=== PATIENT | female | born 2000 | race Caucasian/White ===

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

== ENCOUNTER → 2020-10-13 08:13 | Outpatient (BNVA) | payer MEDICAID, SELFPAY | PROVIDERS: Family Provider Physician Assistant Medical; PCP Physician Assistant Medical; Visit Provider Specialist | DX: F32.9 Major depressive disorder, single episode, unspecified (principal); F84.0 Autistic disorder | CPT/HCPCS: 99213 ==

== ENCOUNTER 2020-10-29 09:20 | Outpatient (CLI) | payer MEDICAID, SELFPAY ==
--- NOTE | 2020-10-29 09:30 | US_ITS ---
WS: [id number] ULTRASOUND RENAL TECHNIQUE: Ultrasound examination of both kidneys. CLINICAL INFORMATION: R32 - Unspecified urinary incontinence COMPARISON: None. FINDINGS: Technically difficult study RIGHT: Right kidney is normal in size and appearance. Echogenicity: Normal. Cortical thickness: 1.3 cm; Normal. Hydronephrosis: None. Perinephric fluid: None. Right kidney measures: 11.0 cm x 3.6 cm x 4.6 cm. LEFT: Left kidney is normal in size and appearance. Echogenicity: Normal. Cortical thickness: 1.2 cm; Normal. Hydronephrosis: None. Perinephric fluid: None. Left kidney measures: 10.5 cm x 3.8 cm x 4.9 cm. Normal visualized aorta. Normal bladder US/US renal BI* [id number] IMPRESSION: Normal renal ultrasound.
== END 2020-10-29 09:21 | disposition home or self-care (01) ==
PROVIDERS: PCP Physician Assistant Medical; Visit Provider Urology
DX: R32 Unspecified urinary incontinence (principal)
CPT/HCPCS: 76770

== ENCOUNTER → 2021-10-12 07:53 | Outpatient (BNVA) | payer MEDICAID, SELFPAY | PROVIDERS: PCP Physician Assistant Medical; Visit Provider Specialist | DX: F32.9 Major depressive disorder, single episode, unspecified (principal); F84.0 Autistic disorder | CPT/HCPCS: 99213; 99214 ==

== ENCOUNTER → 2021-10-29 08:06 | Outpatient (BNVA) | payer MEDICAID, SELFPAY | PROVIDERS: PCP Nurse Practitioner Family; Visit Provider Podiatrist Foot & Ankle Surgery | DX: L60.0 Ingrowing nail (principal) | CPT/HCPCS: 11750 ==

== ENCOUNTER → 2021-11-16 10:10 | Outpatient (BNVA) | payer MEDICAID, SELFPAY | PROVIDERS: PCP Nurse Practitioner Family; Visit Provider Podiatrist Foot & Ankle Surgery | DX: Z98.890 Other specified postprocedural states (principal) | CPT/HCPCS: 99213 ==

== ENCOUNTER → 2022-03-03 08:23 | Outpatient (BNVA) | payer MEDICAID, SELFPAY | PROVIDERS: PCP Nurse Practitioner Family; Visit Provider Podiatrist Foot & Ankle Surgery | DX: L60.0 Ingrowing nail (principal) | CPT/HCPCS: 11750 ==

== ENCOUNTER → 2022-04-26 10:38 | Outpatient (BNVA) | payer MEDICAID, SELFPAY | PROVIDERS: PCP Nurse Practitioner Family; Visit Provider Podiatrist Foot & Ankle Surgery | DX: L60.0 Ingrowing nail (principal); Z98.890 Other specified postprocedural states; L92.9 Granulomatous disorder of the skin and subcutaneous tissue, unspecified | CPT/HCPCS: 99213 ==

== ENCOUNTER → 2022-05-27 09:08 | Outpatient (BNVA) | payer MEDICAID, SELFPAY | PROVIDERS: PCP Nurse Practitioner Family; Visit Provider Podiatrist Foot & Ankle Surgery | DX: L60.0 Ingrowing nail (principal); Z98.890 Other specified postprocedural states; L92.9 Granulomatous disorder of the skin and subcutaneous tissue, unspecified | CPT/HCPCS: 99213 ==

== ENCOUNTER → 2022-06-24 14:55 | Outpatient (BNVA) | payer MEDICAID, SELFPAY | PROVIDERS: PCP Nurse Practitioner Family; Visit Provider Podiatrist Foot & Ankle Surgery | DX: L60.0 Ingrowing nail (principal) | CPT/HCPCS: 11750; A6219; A6446 ==

== ENCOUNTER → 2022-12-13 14:06 | Outpatient (BNVA) | payer MEDICAID, SELFPAY | PROVIDERS: PCP Nurse Practitioner Family; Visit Provider Specialist | DX: G40.909 Epilepsy, unspecified, not intractable, without status epilepticus (principal); F84.0 Autistic disorder; F32.A Depression, unspecified | CPT/HCPCS: 99213 ==

== ENCOUNTER → 2023-10-28 12:44 | Outpatient (BNVA) | payer MEDICAID, SELFPAY | PROVIDERS: PCP Nurse Practitioner Family; Visit Provider Specialist | DX: F84.0 Autistic disorder (principal); F34.1 Dysthymic disorder | CPT/HCPCS: 99214 ==

== ENCOUNTER → 2024-01-10 13:26 | Outpatient (BNVA) | payer MEDICAID, SELFPAY | PROVIDERS: PCP Nurse Practitioner Family; Visit Provider Specialist | DX: F84.0 Autistic disorder (principal); F34.1 Dysthymic disorder | CPT/HCPCS: 99214 ==

== ENCOUNTER → 2024-04-06 12:48 | Outpatient (BNVA) | payer MEDICAID, SELFPAY | PROVIDERS: PCP Nurse Practitioner Family; Visit Provider Specialist | DX: F84.0 Autistic disorder (principal); F34.1 Dysthymic disorder; R00.0 Tachycardia, unspecified | CPT/HCPCS: 99214 ==

== ENCOUNTER → 2024-09-18 14:53 | Outpatient (BNVA) | payer MEDICAID, SELFPAY | PROVIDERS: PCP Nurse Practitioner Family; Referring Provider Nurse Practitioner Family; Visit Provider Specialist | DX: F84.0 Autistic disorder (principal); F34.1 Dysthymic disorder; R56.9 Unspecified convulsions; F69 Unspecified disorder of adult personality and behavior | CPT/HCPCS: 99214 ==

== ENCOUNTER 2024-10-01 18:58 | Emergency (ER) | payer MEDICAID, SELFPAY ==
[2024-10-01 19:02] VITALS: BP 112/72; PULSE 92; TEMP 36.9; O2SAT 100
--- NOTE | 2024-10-01 19:38 | CTR_ITS ---
PROCEDURE INFORMATION: Exam: CT Head Without Contrast Exam date and time: 10/01/2024 7:49 PM Age: 23 years old Clinical indication: Altered mental status/memory loss; Confusion or disorientation; Additional info: AMS TECHNIQUE: Imaging protocol: Computed tomography of the head without contrast. Axial, coronal and sagittal reformatted images were created and reviewed. Radiation optimization: All CT scans at this facility use at least one of these dose optimization techniques: automated exposure control; mA and/or kV adjustment per patient size (includes targeted exams where dose is matched to clinical indication); or iterative reconstruction. COMPARISON: No relevant prior studies available. RADIATION DOSE METRICS: Total DLP (mGy-cm): 2102.96 FINDINGS: Brain: No CT evidence of acute intracranial hemorrhage or acute territorial infarction. No significant mass effect or midline shift. Basal cisterns patent. Cerebral ventricles: Normal in size and configuration. Paranasal sinuses: Unremarkable. No fluid levels. Mastoid air cells: Grossly unremarkable. Bones: Unremarkable. No acute fracture. Soft tissues: Grossly unremarkable. CT/CT head wo con* [id number] IMPRESSION: No CT evidence of acute intracranial pathology.
[2024-10-01] MEDS: ziprasidone 20 mg/mL SDV 10 MG IM (20:08)
[2024-10-01] MEDS: water for injection-sterile 10 ML 2.1 ML (20:08)
[2024-10-01 20:13] LABS: Basophils % 0.6 %; Eosinophils # 0.1 10^3/uL (0.0-0.8); Eosinophils % 0.9 %; Hematocrit 37.7 % (36-47); Lymphocytes # 2.1 10^3/uL (0.8-4.8); Lymphocytes % 38.4 %; Mean Corpuscular HGB Conc 31.6 g/dL (30-55); Mean Corpuscular Hemoglobin 26.4 pg (27-33); Mean Corpuscular Volume 83.8 fl (85-98); Mean Platelet Volume 9.4 fL (7.4-10.4); Monocytes # 0.5 10^3/uL (0.2-0.9); Monocytes % 9.6 %; Neutrophils # 2.73 10^3/uL (1.8-7.7); Neutrophils % 50.3 %; Nucleated Red Blood Cells % 0 %; Platelet Count 239 10^3/cmm (157-399); White Blood Count 5.42 10^3/uL (3.29-11.43)
--- NOTE | 2024-10-01 20:28 | ED.C_ITS ---
HPI - Psych 2 General: Chief Complaint: Psychiatric Symptoms Stated Complaint: MHE-Aggressive Time Seen by Provider: 10/01/24 19:15 Source: family History of Present Illness: 23-year-old female with cognitive impair ment presents with her grandmother (legal guardian) due to increased aggression and behavioral changes over the past two weeks. Patient has exhibited new-onset aggressive behaviors including biting, kicking, shoving, slapping family members, throwing objects, pulling hair, and pulling pictures off sweet. Recent medication changes by Dr. Schmidt approximately 1.5-2 weeks ago reportedly worsened symptoms. Guardian attempted to restart previous medication regimen without improvement. Patient has no history of similar aggressive episodes, with guardian noting this behavior is highly atypical. Notable recent psychosocial stressor includes of grandfather in November 2021, which initially caused depression that had been improving. Patient lives with grandmother (guardian), sister, and recently returned mother. Recent gynecologic history includes discontinuation of Depo shot 6 months ago, history of menorrhagia requiring transfusion (6 units), subsequent D&C, and current IUD placement. Related Data Home Medications ?Medication ?Instructions ?Recorded ?Confirmed ferrous sulfate 325 mg (65 mg mg PO 09/18/24 09/18/24 iron) tablet (FeroSul) Previous Rx's ?Medication ?Instructions ?Recorded trazodone 100 mg tablet See Rx Instructions .Route 0 01/10/24 .COMPLEX #90 tabs aripiprazole 5 mg tablet (Abilify) 5 mg PO DAILY #30 t abs 09/18/24 citalopram 40 mg tablet 40 mg PO DAILY #30 tabs 08/29 07/24 topiramate 100 mg tablet (Topamax) 100 mg PO DAILY #30 tabs 09/18/24 Allergies Allergy/AdvReac Type Severity Reaction Status Date / Time lamotrigine (From Lamictal) Allergy Intermediate Rash Verified 10/01/24 19:09 PFSH ED 2 PFSH: Medical History Enuresis Surgical History History of tonsillectomy Hx of eye surgery Family History Grandfather Hypertension Denies family history of Colon cancer Ovarian cancer Thyroid cancer Diabetes Heart disease Breast cancer Uterine cancer Stroke Social History Smoking and tobacco/nicotine status: never used tobacco/nicotine Current occupational status: disabled Physical Exam 2 Const: COMMON NORMALS: no acute distress, alert and well nourished O RIENTATION/CONSCIOUSNESS: Yes awake OTHER: Developmentally delayed 23-year-old female who is awake alert sitting in a chair HENMT: COMMON NORMALS: normocephalic and atraumatic HEAD & SCALP: n ormocephalic and atraumatic Eye: COMMON NORMALS: conjunctivae normal CONJUNCTIVA: Yes conjunctivae normal Neck/C-Spine: GENERAL: Yes normal visual inspection Resp: COMMON NORMALS: normal respiratory effort, No retractions and No use of accessory muscles Cardio: COMMON NORMALS: regular rhythm and Peripheral pulses 2+ throughout RHYTHM: regular rhythm PERIPHERAL PULSES: Peripheral pulses 2+ throughout GI: COMMON NORMALS: Soft to palpation and non-tender PALPATION: Yes Soft to palpation Extremity: COMMON NORMALS: full ROM and no pedal edema Neuro: COMMON NORMALS: no focal motor deficits SENSORIUM/ORIENTATION: Yes alert Course 2 Vital Signs: Vital signs: Vital Signs Temperature 98.4 F 10/01/24 19:02 Pulse Rate 92 10/01/24 19:02 Blood Pressure 112/72 10/01/24 19:02 Pulse Oximetry 100 10/01/24 19:02 Oxygen Delivery Me thod Room Air 10/01/24 19:02 MDM - Psych Medical Decision Making Review of Systems: Limited due to patient's nonverbal status and developmental delay Constitutional: Unable to assess due to communication barriers Psychiatric: Noted behavioral changes and restlessness Past Medical History: Developmental delay Nonverbal status Social History: Lives with grandmother who is legal guardian Developmental delay affecting communication Nonverbal Physical Exam: General: Patient is nonverbal, demonstrating restless behavior with attempts to get up from chair Psychiatric: Alert but nonverbal, displaying restless behavior Neurological: Limited exam due to communication barriers Lab Results: Pending studies ordered: - Complete Blood Count (CBC) - Comprehensive Metabolic Panel (CMP) - Urinalysis - test - Urine drug screen - Salicylate level - Acetaminophen level Imaging and Other Relevant Results: EKG ordered Medical Decision Making: Summary Statement: Developmentally delayed, nonverbal patient presenting with behavioral changes, accompanied by grandmother/guardian. Problem List: 1. Acute behavioral changes 2. Developmental delay 3. Nonverbal status Differential Diagnosis: 1. Medication effect/toxicity 2. Metabolic derangement 3. Infection 4. Substance use 5. Psychiatric exacerbation ED Course: Patient evaluated with comprehensive laboratory workup ordered including toxicology screening, basic metabolic evaluation, and EKG to rule out organic causes of behavioral changes. Assessment and Plan: 1. Acute behavioral changes: - Comprehensive metabolic workup ordered - Toxicology screening including salicylate and acetaminophen levels - EKG to evaluate for any cardiac abnormalities - Await results to guide further management 2. Developmental delay/Nonverbal status: - History obtained from grandmother/guardian - Will require careful observation and monitoring during ED stay - Consider psychiatric consultation based on lab results Patient's laboratory workup is unremarkable for acute abnormalities here. CT scan of the brain is negative for acute processes. Patient was given a dose of Geodon here to help with calming. She has not been aggressive or agitated significantly while here. Due to her significant cognitive delay we discussed potential difficulty with inpatient psychiatric placement and ultimately feel her need would likely be better suited for long-term inpatient facility or longterm placement. The guardian states she was aware of this and they have considered doing this and talked about it on several occasions in the past including with her psychiatrist. I offered for patient to stay here and we locate her attempt to locate long-term placement however feel this may cause some increased agitation with the patient given the likely long delay while here. The grandmother is in agreement and feels comfortable taking her home and states they can follow-up with her mental health care provider and discuss seeking long-term inpatient placement from home. Return precautions were provided. Lab Data I reviewed the patient's lab results. 10/01/24 20:05 10/01/24 20:[address] 10/01/24 19:38 IMPRESSION: No CT evidence of acute intracranial pathology. Laboratory Results WBC 5.42 10^3/uL (3.29-11.43) 10/01/24 20:05 RBC 4.50 10^6/uL (3.85-5.65) 10/01/24 20:05 Hgb 11.90 g/dL (11.27-16.99) 10/01/24 20:05 Hct 37.7 % (36-47) 10/01/24 20:05 MCV 83.8 fl (85-98) L 10/01/24 20:05 MCH 26.4 pg (27-33) L 10/01/24 20:05 MCHC 31.6 g/dL (30-55) 10/01/24 20:05 RDW 13.0 % (12.1-15.1) 10/01/24 20:05 Plt Count 239 10^3/cmm (157-399) 10/01/24 20:05 MPV 9.4 fL (7.4-10.4) 10/01/24 20:05 Neut % (Auto) 50.3 % 10/01/24 20:05 Lymph % (Auto) 38.4 % 10/01/24 20:05 [place] % (Auto) 9.6 % 10/01/24 20:05 Eos % (Auto) 0.9 % 10/01/24 20:05 Baso % (Auto) 0.6 % 10/01/24 20:05 Neut # (Auto) 2.73 10^3/uL (1.8-7.7) 10/01/24 20:05 Lymph # (Auto) 2.1 10^3/uL (0.8-4.8) 10/01/24 20:05 [place] # (Auto) 0.5 10^3/uL (0.2-0.9) 10/01/24 20:05 Eos # (Auto) 0.1 10^3/uL (0.0-0.8) 10/01/24 20:05 Baso # (Auto) 0.0 10^3/uL (0.0-0.1) 10/01/24 20:05 Nucleated RBC % (auto) 0 % 10/01/24 20:05 Nucleated RBCs # 0.0 /100WBC 10/01/24 20:05 Sodium 140 mmol/L (136-145) 10/01/24 20:05 Potassium 3.5 mmol/L (3.5-5.1) 10/01/24 20:05 Chloride 108 mmol/L (98-107) H 10/01/24 20:05 Carbon Dioxide 19 mmol/L (22-29) L 10/01/24 20:05 Anion Gap 16.5 (5-19) 10/01/24 20:05 BUN 10 mg/dL (6-20) 10/01/24 20:05 Creatinine 0.7 mg/dL (0.5-0.9) 10/01/24 20:05 GFR Calculation 103.7 mL/min (90-130) 10/01/24 20:05 Glucose 82 mg/dL (65-115) 10/01/24 20:05 Calculated Osmolality 288 mOsm/kg (285-295) 10/01/24 20:05 Calcium 8.6 mg/dL (8.5-10.5) 10/01/24 20:05 Total Bilirubin 0.4 mg/dL (0.15-1.2) 10/01/24 20:05 AST 15 U/L (0-32) 10/01/24 20:05 ALT 15 U/L (0-33) 10/01/24 20:05 Alkaline Phosphatase 48 U/L (35-105) 10/01/24 20:05 Total Protein 7.2 g/dL (6.6-8.7) 10/01/24 20:05 Albumin 4.1 g/dL (3.5-5.2) 10/01/24 20:05 Globulin 3.1 g/dL (1.3-4.6) 10/01/24 20:05 TSH 3.15 uIU/mL (0.27-4.20) 10/01/24 20:05 HCG, Qual Negative (Negative) 10/01/24 20:05 Salicylates < 0.3 mg/dL (3-10) L 10/01/24 20:05 Acetaminophen < 5.0 ug/mL (10-30) L 10/01/24 20:05 Ethyl Alcohol < 10 mg/dL (0-10) 10/01/24 20:05 All radiology interpretation(s) finalized by discharge Discharge Plan Discharge Patient Disposition: Home Clinical Impression: Developmental delay, profound, Outbursts of explosive behavior Condition: Stable Prescriptions: No Action trazodone 100 mg tablet See Rx Instructions .ROUTE .COMPLEX Qty: 90 3RF Dose Instruction: TAKE 1 TABLET(100 MG) BY MOUTH DAILY AT BEDTIME Rx Instructions: TAKE 1 TABLET(100 MG) BY MOUTH DAILY AT BEDTIME as needed for sleep ferrous sulfate [FeroSul] 325 mg (65 mg iron) tablet PO citalopram 40 mg tablet 40 mg PO DAILY Qty: 30 11RF Rx Instructions: take at night aripiprazole [Abilify] 5 mg tablet 5 mg PO DAILY Qty: 30 5RF Rx Instructions: at night topiramate [Topamax] 100 mg tablet 100 mg PO DAILY Qty: 30 11RF Rx Instructions: take at night Discharge Orders: Discharge ED (Routine); Ordered 10/01/24 Ordered By: Curt Bean Referrals: Jennifer Schmidt MD [Primary Care Provider, Neurology] Patient Instructions: Opioid Safety Activity Restrictions/Additional Instructions: Follow-up with your mental health care provider as an outpatient. Contact them tomorrow to discuss further outpatient treatment and potential long-term inpatient psychiatric placement or longterm placement. Return for any concerns or self-harm or increased aggressive behavior. Print Language: Croatian Coding Level of Care Code ED Cyanide Furnace Operator for William Menendez
[2024-10-01 20:39] LABS: Alanine Aminotransferase 15 U/L (0-33); Albumin Level 4.1 g/dL (3.5-5.2); Alkaline Phosphatase 48 U/L (35-105); Anion Gap 16.5 (5-19); Aspartate Amino Transferase 15 U/L (0-32); Blood Urea Nitrogen 10 mg/dL (6-20); Calcium 8.6 mg/dL (8.5-10.5); Carbon Dioxide 19 mmol/L (22-29); Chloride 108 mmol/L (98-107); Creatinine Clr Calc Pharmacy 115.4587; Globulin 3.1 g/dL (1.3-4.6); Glomerular Filtration Rate 103.7 mL/min (90-130); Glucose 82 mg/dL (65-115); Osmolality Calculated 288 mOsm/kg (285-295); Potassium 3.5 mmol/L (3.5-5.1); Sodium 140 mmol/L (136-145); Thyroid Stimulating Hormone 3.15 uIU/mL (0.27-4.20); Total Bilirubin 0.4 mg/dL (0.15-1.2); Total Protein 7.2 g/dL (6.6-8.7)
[2024-10-01 20:41] LABS: Acetaminophen < 5.0 ug/mL (10-30); Alcohol Level < 10 mg/dL (0-10); Salicylate < 0.3 mg/dL (3-10)
[2024-10-01 23:35] LABS: HCG, Serum Qual Negative (Negative)
[2024-10-01 23:52] VITALS: BP 146/79; PULSE 89; RESP 16; O2SAT 97
--- NOTE | 2024-10-02 17:15 | W.C[facility].NURCN ---
[facility] Nurse Contact Note Nurse Contact Note V/S were not obtained in [facility] as client due to possible behaviors/mental illness/disability.
== END 2024-10-01 23:54 | disposition home or self-care (01) ==
PROVIDERS: Emergency Provider Student in an Organized Health Care Education/Training Program; PCP Specialist
DX: F73 Profound intellectual disabilities (principal); F63.81 Intermittent explosive disorder
CPT/HCPCS: 36415; 70450; 80053; 80307; 84443; 84703; 85025; 96372; 99284; J3486

== ENCOUNTER → 2024-10-02 14:06 | Outpatient (BNVA) | payer MEDICAID, SELFPAY | PROVIDERS: PCP Specialist; Referring Provider Specialist; Visit Provider Specialist | DX: G40.909 Epilepsy, unspecified, not intractable, without status epilepticus (principal); F31.12 Bipolar disorder, current episode manic without psychotic features, moderate; F84.0 Autistic disorder; F34.1 Dysthymic disorder; F69 Unspecified disorder of adult personality and behavior | CPT/HCPCS: 99214 ==

== ENCOUNTER 2024-10-02 17:51 | Emergency (ER) | payer MEDICAID, SELFPAY ==
[2024-10-02 18:10] VITALS: BP 119/72; PULSE 101; RESP 18; TEMP 37.7; O2SAT 98; BMI 27.9
[2024-10-02 19:52] VITALS: BP 139/99; PULSE 100; RESP 16; O2SAT 95
--- NOTE | 2024-10-02 20:14 | ED.C_ITS ---
HPI - Psych General: Chief Complaint: Psychiatric Symptoms Stated Complaint: MHE Agressive Time Seen by Provider: 10/02/24 18:03 History of Present Illness: 23-year-old female with past medical his tory of a seizure disorder, autism, developmental delay has been having behavioral issues and intermittent behavioral outbursts of aggression over the past several months particular worse over the past few weeks. She is been managed by her neurologist Dr. Schmidt. She was seen here last night for this and had a thorough evaluation including head CT labs that were unrevealing. She was given a dose of Ativan and was discharged. Patient continues to have intermittent aggressive episodes. She was seen at her neurologist office today who referred her back to the emergency department. Here the patient is calm follows commands she is here with her grandmother. The grandmother and the mother have been caring for the patient. Related Data Home Medications ?Medication ?Instructions ?Recorded ?Confirmed ferrous sulfate 325 mg (65 mg mg PO 09/18/24 10/02/24 iron) tablet (FeroSul) Previous Rx's ?Medication ?Instructions ?Recorded trazodone 100 mg tablet See Rx Instructions .Route 0 01/10/24 .COMPLEX #90 tabs citalopram 40 mg tablet 40 mg PO DAILY #30 tabs 08/29 07/24 topiramate 100 mg tablet (Topamax) 100 mg PO DAILY #30 tabs 09/18/24 aripiprazole 10 mg tablet 10 mg PO DAILY #30 tabs 11/21 divalproex 125 mg capsule,delayed 500 mg (4 x 125 mg) PO BID 30 days 10/02/24 release sprinkle (Depakote #240 caps Sprinkles) Allergies Allergy/AdvReac Type Severity Reaction Status Date / Time lamotrigine (From Lamictal) Allergy Intermediate Rash Verified 10/02/24 16:14 Review of Systems Const: Denies: fever(s) or chills ENMT: Denies: oral sores or dental pain Card: Denies: edema, swelling of feet/ankles or syncope Resp: Denies: dyspnea, productive cough or non-productive cough GI: Denies: abdominal pain, vomiting or diarrhea Skin/Breast: Denies: rash Neuro: Denies: weakness in extremities Psych: Reports: irritability PFSH ED PFSH: Medical History Enuresis Surgical History History of tonsillectomy Hx of eye surgery Family History Grandfather Hypertension Denies family history of Colon cancer Ovarian cancer Thyroid cancer Diabetes Heart disease Breast cancer Uterine cancer Stroke Social History Smoking and tobacco/nicotine status: never used tobacco/nicotine Current occupational status: disabled Physical Exam Narrative: EXAM NARRATIVE: General: Alert, no acute distress. Skin: Warm, dry. Head: Normocephalic, atraumatic. Neck: Supple, trachea midline. Eye: Extraocular movements are intact. Ears, nose, mouth and throat: mucosa moist. Cardiovascular: Regular, Normal peripheral perfusion. Respiratory: Lungs are clear to auscultation, respirations are non-labored, breath sounds are equal, Symmetrical chest wall expansion. Gastrointestinal: Soft, Nontender, Non distended Musculoskeletal: Normal ROM, no deformity. Neurological: Alert. She moves all extremities. No focal motor deficit. She follows commands, she is interactive Psychiatric: Calm,cooperative Course Vital Signs: Vital signs: Vital Signs Temperature 99.9 F H 10/02/24 18:10 Pulse Rate 100 10/02/24 19:52 Respiratory Rate 16 10/02/24 19:52 Blood Pressure 139/99 10/02/24 19:52 Pulse Oximetry 95 10/02/24 19:52 Oxygen Delivery Me thod Room Air 10/02/24 19:52 MDM - Psych Medical Decision Making Patient with chronic behavioral issues secondary to her autism that have been worsening recently. I have consulted with Dr. Schmidt who was consulted with Dr. Galvez with the plan to start patient on 40 mg of Geodon IM now once, as well as give a gram of Depacon IM. However unfortunately as per pharmacy we are unable to give this medicine IM and the patient was able to take it p.o. so he was given p.o. Will also increase aripiprazole to 10 mg and initiate Depakote sprinkles x 4 x 125 mg twice daily. If this does not work by tomorrow hopefully by tomorrow she is more cooperative and will take her medications if not she is to present to the crisis center where Dr. Sinclair may be able to give her a long- acting aripiprazole No radiology studies performed this visit Discharge Plan Discharge Patient Disposition: Home Clinical Impression: Behavioral problems Condition: Stable Prescriptions: New aripiprazole 10 mg tablet 10 mg PO DAILY Qty: 30 0RF divalproex [Depakote Sprinkles] 125 mg capsule, delayed rel sprinkle 500 mg PO BID 30 Days Qty: 240 0RF Discontinued aripiprazole [Abilify] 5 mg tablet 5 mg PO DAILY Qty: 30 5RF Rx Instructions: at night No Action trazodone 100 mg tablet See Rx Instructions .ROUTE .COMPLEX Qty: 90 3RF Dose Instruction: TAKE 1 TABLET(100 MG) BY MOUTH DAILY AT BEDTIME Rx Instructions: TAKE 1 TABLET(100 MG) BY MOUTH DAILY AT BEDTIME as needed for sleep ferrous sulfate [FeroSul] 325 mg (65 mg iron) tablet PO citalopram 40 mg tablet 40 mg PO DAILY Qty: 30 11RF Rx Instructions: take at night topiramate [Topamax] 100 mg tablet 100 mg PO DAILY Qty: 30 11RF Rx Instructions: take at night Discharge Orders: Discharge ED (Routine); Ordered 10/02/24 Ordered By: Elham Meeks Referrals: Jennifer Schmidt MD [Primary Care Provider, Neurology] Print Language: Tanzanian Coding Level of Care Code ED Medical Billing Assistant for William Menendez
[2024-10-02] MEDS: ziprasidone 20 mg/mL SDV 40 MG IM (20:26)
[2024-10-02] MEDS: water for injection-sterile 10 ML (20:27)
[2024-10-02] MEDS: divalproex DR 500 mg Tablet PO (21:10)
[2024-10-02 21:45] VITALS: BP 132/78; PULSE 86; RESP 16; O2SAT 97
== END 2024-10-02 21:46 | disposition home or self-care (01) ==
PROVIDERS: Emergency Provider Emergency Medicine; PCP Specialist
DX: F98.9 Unspecified behavioral and emotional disorders with onset usually occurring in childhood and adolescence (principal)
CPT/HCPCS: 96372; 99284; J3486; J9999

== ENCOUNTER 2024-10-14 09:37 | Observation (INO) | payer MEDICAID, SELFPAY ==
[2024-10-14 09:41] VITALS: BP 107/76; PULSE 99; RESP 15; O2SAT 99; BMI 27.4
[2024-10-14 10:32] LABS: Basophils % 0.5 %; Hematocrit 35.6 % (36-47); Lymphocytes # 1.3 10^3/uL (0.8-4.8); Lymphocytes % 33.2 %; Mean Corpuscular HGB Conc 30.3 g/dL (30-55); Mean Corpuscular Hemoglobin 26.3 pg (27-33); Mean Corpuscular Volume 86.6 fl (85-98); Mean Platelet Volume 9.6 fL (7.4-10.4); Monocytes # 0.4 10^3/uL (0.2-0.9); Monocytes % 10.5 %; Neutrophils # 2.14 10^3/uL (1.8-7.7); Neutrophils % 54.5 %; Nucleated Red Blood Cells % 0 %; Platelet Count 222 10^3/cmm (157-399); Red Blood Count 4.11 10^6/uL (3.85-5.65); Red Cell Distribution Width 12.8 % (12.1-15.1); White Blood Count 3.92 10^3/uL (3.29-11.43)
--- NOTE | 2024-10-14 10:43 | ECG_ITS ---
[employer] Test Date: 2024-10-14 Pat Name: Radha Ortiz Department: Room: Gender: Female Body And Frame Technician: : 2000 Requested By: Omar Law Order Number: [id number] Infante MD: Gilbert Echeverria M.D. Measurements Intervals [place] Rate: 81 P: 15 SC: 117 QRS: 13 QRSD: 72 T: 16 QT: 376 QTc: 438 Interpretive Statements SINUS RHYTHM WITH SHORT SC INTERVAL LOW QRS VOLTAGE IN PRECORDIAL LEADS [QRS DEFLECTION < 1.0 mV IN CHEST LEADS] No previous ECG available for comparison Electronically Signed On 10-14-2024 12:27:12 CDT by Gilbert Echeverria M.D. [email or web address]
[2024-10-14 10:48] LABS: Carbon Dioxide 22 mmol/L (22-29); Chloride 105 mmol/L (98-107); Sodium 139 mmol/L (136-145)
[2024-10-14 10:49] LABS: Acetaminophen < 5.0 ug/mL (10-30); Alanine Aminotransferase 9 U/L (0-33); Albumin Level 4.2 g/dL (3.5-5.2); Alkaline Phosphatase 41 U/L (35-105); Aspartate Amino Transferase 16 U/L (0-32); Blood Urea Nitrogen 13 mg/dL (6-20); Creatinine Clr Calc Pharmacy 132.6138; Globulin 2.8 g/dL (1.3-4.6); Glomerular Filtration Rate 123.9 mL/min (90-130); Glucose 80 mg/dL (65-115); Osmolality Calculated 287 mOsm/kg (285-295); Salicylate < 0.3 mg/dL (3-10); Total Bilirubin 0.5 mg/dL (0.15-1.2)
--- NOTE | 2024-10-14 10:58 | ED.C_ITS ---
HPI - Psych 2 General: Chief Complaint: Psychiatric Symptoms Stated Complaint: behavioral issues Time Seen by Provider: 10/14/24 10:05 History of Present Illness: The patient is a female with a history of behavioral problems presenting with worsening aggression and severe behavioral issues. The caregiver reports that the patient has been experiencing increased aggression and behavioral problems for the past three weeks, with gradual worsening. The patient has been up for the past three nights, throwing furniture, and opened the car door while in transit to the appointment. The caregiver describes the patient as very abusive, with the situation deteriorating. The patient's current medication regimen, which includes Sprix and Depakote Sprinkles prescribed last week, has been ineffective. The patient refuses to take the medication, often spitting it out. When the medication is successfully administered, its effects only last for about 30 minutes before the aggressive behavior resumes. The patient's incontinence has been a barrier to admission at various facilities in [place]. The caregiver reports attempting to seek help [facility] last week, but the intervention was unsuccessful. The patient's behavioral issues have significantly impacted the family's ability to manage her care at home, with the caregiver stating, We can't handle her. The aggressive behavior and furniture throwing have created an unsafe environment for both the patient and her caregivers. The patient's condition has progressed to the point where the family is seeking long-term placement options, as short-term facilities have been unable to address her specific needs. The caregiver mentions difficulty in finding a facility that will accept the patient due to her complex presentation and incontinence. Related Data Home Medications ?Medication ?Instructions ?Recorded ?Confirmed ferrous sulfate 325 mg (65 mg mg PO 09/18/24 10/02/24 iron) tablet (FeroSul) Previous Rx's ?Medication ?Instructions ?Recorded trazodone 100 mg tablet See Rx Instructions .Route 0 01/10/24 .COMPLEX #90 tabs citalopram 40 mg tablet 40 mg PO DAILY #30 tabs 08/29 07/24 aripiprazole 10 mg tablet 10 mg PO DAILY #90 tabs 12/21 divalproex 125 mg capsule,delayed 500 mg (4 x 125 mg) PO BID 90 days 10/03/24 release sprinkle (Depakote #720 caps Sprinkles) Allergies Allergy/AdvReac Type Severity Reaction Status Date / Time lamotrigine (From Lamictal) Allergy Intermediate Rash Verified 10/02/24 16:14 Review of Systems 2 General: Reports: 10 or more systems reviewed and unremarkable except in HPI and below PFSH ED 2 PFSH: Medical History Enuresis Surgical History History of tonsillectomy Hx of eye surgery Family History Grandfather Hypertension Denies family history of Colon cancer Ovarian cancer Thyroid cancer Diabetes Heart disease Breast cancer Uterine cancer Stroke Social History Smoking and tobacco/nicotine status: never used tobacco/nicotine Current occupational status: disabled Physical Exam 2 Const: COMMON NORMALS: no acute distress, patient oriented x3, healthy appearing, alert and well nourished HENMT: COMMON NORMALS: normocephalic HEAD & SCALP: normocephalic Eye: COMMON NORMALS: EOMs intact bilaterally Neck/C-Spine: COMMON NORMALS: full ROM and supple Resp: COMMON NORMALS: normal respiratory effort, No retractions and clear to auscultation bilaterally AUSCULTATION: clear to auscultation bilaterally Cardio: COMMON NORMALS: regular rate, regular rhythm, No gallops present (Cardio) and No murmurs present (Cardio) RATE: regular rate RHYTHM: r egular rhythm GI: COMMON NORMALS: Soft to palpation and non-tender PALPATION: Yes Soft to palpation Extremity: GENERAL: Yes normal exam except as noted Neuro: COMMON NORMALS: patient oriented x3 SENSORIUM/ORIENTATION: Yes alert Skin: COMMON NORMALS: no rashes or lesions noted GENERAL SKIN EXAM: no rashes or lesions noted Course 2 Vital Signs: Vital signs: Vital Signs Pulse Rate 99 10/14/24 09:41 Respiratory Rate 15 10/14/24 09:41 Blood Pressure 107/76 10/14/24 09:41 Pulse Oximetry 99 10/14/24 09:41 Oxygen Delivery Me thod Room Air 10/14/24 09:41 MDM - Psych Medical Decision Making 23-year-old female presents to the emergency department with her grandmother for evaluation and management of behavioral disturbance and aggression. Patient has declined to take her medicines. Additionally, she has significant mental limitations with aggression. Case discussed with Dr. Holman who is in agreement that the patient might need a short stay inpatient in order to help transition her medicines over to IM medications. Discussed with the patient's caregiver who was in agreement with this plan. Lab Data 10/14/24 10:22 10/14/24 10:22 Laboratory Results WBC 3.92 10^3/uL (3.29-11.43) 10/14/24 10:22 RBC 4.11 10^6/uL (3.85-5.65) 10/14/24 10:22 Hgb 10.80 g/dL (11.27-16.99) L 10/14/24 10:22 Hct 35.6 % (36-47) L 10/14/24 10:22 MCV 86.6 fl (85-98) 10/14/24 10:22 MCH 26.3 pg (27-33) L 10/14/24 10:22 MCHC 30.3 g/dL (30-55) 10/14/24 10:22 RDW 12.8 % (12.1-15.1) 10/14/24 10:22 Plt Count 222 10^3/cmm (157-399) 10/14/24 10:22 MPV 9.6 fL (7.4-10.4) 10/14/24 10:22 Neut % (Auto) 54.5 % 10/14/24 10:22 Lymph % (Auto) 33.2 % 10/14/24 10:22 [place] % (Auto) 10.5 % 10/14/24 10:22 Eos % (Auto) 1.0 % 10/14/24 10:22 Baso % (Auto) 0.5 % 10/14/24 10:22 Neut # (Auto) 2.14 10^3/uL (1.8-7.7) 10/14/24 10:22 Lymph # (Auto) 1.3 10^3/uL (0.8-4.8) 10/14/24 10:22 [place] # (Auto) 0.4 10^3/uL (0.2-0.9) 10/14/24 10:22 Eos # (Auto) 0.0 10^3/uL (0.0-0.8) 10/14/24 10:22 Baso # (Auto) 0.0 10^3/uL (0.0-0.1) 10/14/24 10:22 Nucleated RBC % (auto) 0 % 10/14/24 10:22 Nucleated RBCs # 0.0 /100WBC 10/14/24 10:22 Sodium 139 mmol/L (136-145) 10/14/24 10:22 Potassium 4.0 mmol/L (3.5-5.1) 10/14/24 10:22 Chloride 105 mmol/L (98-107) 10/14/24 10:22 Carbon Dioxide 22 mmol/L (22-29) 10/14/24 10:22 Anion Gap 16.0 (5-19) 10/14/24 10:22 BUN 13 mg/dL (6-20) 10/14/24 10:22 Creatinine 0.6 mg/dL (0.5-0.9) 10/14/24 10:22 GFR Calculation 123.9 mL/min (90-130) 10/14/24 10:22 Glucose 80 mg/dL (65-115) 10/14/24 10:22 Calculated Osmolality 287 mOsm/kg (285-295) 10/14/24 10:22 Calcium 9.0 mg/dL (8.5-10.5) 10/14/24 10:22 Total Bilirubin 0.5 mg/dL (0.15-1.2) 10/14/24 10:22 AST 16 U/L (0-32) 10/14/24 10:22 ALT 9 U/L (0-33) 10/14/24 10:22 Alkaline Phosphatase 41 U/L (35-105) 10/14/24 10:22 Total Protein 7.0 g/dL (6.6-8.7) 10/14/24 10:22 Albumin 4.2 g/dL (3.5-5.2) 10/14/24 10:22 Globulin 2.8 g/dL (1.3-4.6) 10/14/24 10:22 Salicylates < 0.3 mg/dL (3-10) L 10/14/24 10:22 Acetaminophen < 5.0 ug/mL (10-30) L 10/14/24 10:22 No radiology studies performed this visit Discharge Plan Discharge Patient Disposition: Placed in Observation Clinical Impression: Autism, Rage attacks Coding Level of Care Code ED Automatic Dry Starch Operator for William Menendez
[2024-10-14] MEDS: haloperidol inj 5 mg/mL INJ 1 mL IM (11:33)
[2024-10-14] MEDS: LORazepam 1 MG/0.5 ML injection 2 MG IM (11:33)
--- NOTE | 2024-10-14 13:33 | W.PM.NPUH&PS ---
Providers/Chief Complaint Primary Care Provider: Jennifer Schmidt MD Chief Complaint: behavioral issues HPI NPU History of Present Illness Radha Ortiz is a 23 year old female who presented to the emergency department with the following report: Chief Complaint: Psychiatric Symptoms Stated Complaint: behavioral issues Time Seen by Provider: 10/14/24 10:05 History of Present Illness: The patient is a female with a history of behavioral problems presenting with worsening aggression and severe behavioral issues. The caregiver reports that the patient has been experiencing increased aggression and behavioral problems for the past three weeks, with gradual worsening. The patient has been up for the past three nights, throwing furniture, and opened the car door while in transit to the appointment. The caregiver describes the patient as very abusive, with the situation deteriorating. The patient's current medication regimen, which includes Sprix and Depakote Sprinkles prescribed last week, has been ineffective. The patient refuses to take the medication, often spitting it out. When the medication is successfully administered, its effects only last for about 30 minutes before the aggressive behavior resumes. The patient's incontinence has been a barrier to admission at various facilities in [place]. The caregiver reports attempting to seek help [facility] last week, but the intervention was unsuccessful. The patient's behavioral issues have significantly impacted the family's ability to manage her care at home, with the caregiver stating, We can't handle her. The aggressive behavior and furniture throwing have created an unsafe environment for both the patient and her caregivers. The patient's condition has progressed to the point where the family is seeking long-term placement options, as short-term facilities have been unable to address her specific needs. The caregiver mentions difficulty in finding a facility that will accept the patient due to her complex presentation and incontinence. She was admitted to the neuropsychiatric unit for definitive treatment of those issues. Patient was a poor historian but family was with her in the emergency department. We were able to get a history consistent with what was described by the emergency room doctor above. The behaviors seem to have started or at least were exacerbated by her essential discontinuation of medication which was followed by increasing disruption in her behavior patterns. After getting her and evaluating her for admission it became clear she was not suitable for the unit. However we had discussed the risks, benefits and alternatives of initiating the Abilify Maintena injection and they understood and agreed to proceed as is documented in this note. After receiving the injection we discussed with family approaches to manage things over the next several days and that they could return if there were issues and that we would talk to the outpatient provider Dr. Schmidt about getting her in a position that she could get the shot regularly. We also discussed the Nikki Holliday and the possibility of getting her on shots every 2 months. We reviewed her mental health history and there were no additional issues of note. Meds NPU Home Medications ?Medication ?Instructions ?Recorded ?Confirmed ?Last Taken ?Type trazodone 100 mg tablet See Rx Instructions .Route 01/10/24 10/14/24 Unknown Rx .COMPLEX #90 tabs citalopram 40 mg tablet 40 mg PO DAILY #30 tabs 09/18/24 10/14/24 Unknown Rx aripiprazole 10 mg tablet 10 mg PO DAILY #90 tabs 10/03/24 10/14/24 Unknown Rx divalproex 125 mg capsule,delayed 500 mg (4 x 125 mg) PO BID 90 days 10/03/24 10/14/24 Unknown Rx release sprinkle (Depakote #720 caps Sprinkles) topiramate 100 mg tablet 100 mg PO DAILY 10/14/24 10/14/24 Unknown History Allergies Allergy/AdvReac Type Severity Reaction Status Date / Time lamotrigine (From Lamictal) Allergy Intermediate Rash Verified 10/02/24 16:14 [facility] NPU PFSH: Medical History Enuresis Surgical History History of tonsillectomy Hx of eye surgery Family History Grandfather Hypertension Denies family history of Colon cancer Ovarian cancer Thyroid cancer Diabetes Heart disease Breast cancer Uterine cancer Stroke Social History Smoking and tobacco/nicotine status: never used tobacco/nicotine Current occupational status: disabled Mental Status Exam MSE Comments: This is an overweight versus obese white female with limited grooming and eye contact. No abnormal movements except for mild psychomotor retardation currently no reports of psychomotor agitation. Minimally cooperative with exam and mild to moderate distress. Speech was limited and aphasia mostly mute. Mood not described affect subdued. Thought process linear versus disorganized. Thought content: No reports of suicidal or homicidal ideation but recent issues of self directed aggression and aggression towards others, there were no delusions reported or noted, there were no signs that she was attending to internal stimuli. Attention and concentration were limited versus impaired and memory was unreliable but none were formally tested. She was alert and oriented to self. Insight, judgment and impulse control are impaired. Vitals/I&O/Wt Last Vital Signs Pulse 99 10/14/24 09:41 Resp 15 10/14/24 09:41 BP 107/76 10/14/24 09:41 Pulse Ox 99 10/14/24 09:41 O2 Del Method Room Air 10/14/24 09:41 Weight last 48 hrs Weight 57.606 kg Data NPU 10/14/24 10:22 10/14/24 10:22 A&P Assessment and plan (1) Bipolar 1 disorder with moderate manfred: (2) Autism: (3) Seizures: Plan This is a 23-year-old white female with a long history of mental health challenges and intellectual disability who presented to the emergency department with a stoppage in her medication and family being unable to get her to take medication as prescribed. We had reviewed the long-acting injectable and discussed admission with the plan to start that injection given the increase in agitation. 1. Admit to neuropsychiatric unit. 2. Initiate Abilify Maintena 400 mg IM. 3. Encourage individual, group and milieu therapy. 4. Initiate every 15 minute checks for safety. 5. Get collateral information from family given patient poor historian. PDMP PDMP Reviewed: Not Reviewed Attestations NPU Medical Necessity Statement*: Inpatient hospitalization is medically necessary and the clinically appropriate intervention at this time. We will monitor medications and make changes and adjustments as indicated. Likely length of stay 1-3 days. Coding Level of Care Code Acute Code for g Fwd Diagnoses Bipolar 1 disorder with moderate manfred F31.12 Autism F84.0 Seizures R56.9
[2024-10-14] MEDS: ARIPiprazole Maintena 400 MG IM (14:52)
--- NOTE | 2024-10-14 15:09 | P.NPUDS_ITS ---
Diagnoses at Discharge Discharge Diagnosis (1) Bipolar 1 disorder with moderate manfred: Status: Acute (2) Autism: Status: Acute (3) Seizures: Status: Acute Reason for Visit Reason for Visit: behavioral issues Brief History: Chief Complaint: behavioral issues HPI NPU History of Present Illness Radha Ortiz is a 23 year old female who presented to the emergency department with the following report: Chief Complaint: Psychiatric Symptoms Stated Complaint: behavioral issues Time Seen by Provider: 10/14/24 10:05 History of Present Illness: The patient is a female with a history of behavioral problems presenting with worsening aggression and severe behavioral issues. The caregiver reports that t he patient has been experiencing increased aggression and behavioral problems for the past three weeks, with gradual worsening. The patient has been up for the past three nights, throwing furniture, and opened the car door while in transit to the appointment. The caregiver describes the patient as very abusive, with the situation deteriorating. The patient's current medication regimen, which includes Sprix and Depakote Sprinkles prescribed last week, has been ineffective. The patient refuses to take the medication, often spitting it out. When the medication is successfully administered, its effects only last for about 30 minutes before the aggressive behavior resumes. The patient's incontinence has been a barrier to admission at various facilities in [place]. The caregiver reports attempting to seek help [facility] last week, but the intervention was unsuccessful. The patient's behavioral issues have significantly impacted the family's ability to manage her care at home, with the caregiver stating, We can't handle her. The aggressive behavior and furniture throwing have created an unsafe environment for both the patient and her caregivers. The patient's condition has progressed to the point where the family is seeking long-term placement options, as short-term facilities have been unable to address her specific needs. The caregiver mentions difficulty in finding a facility that will accept the patient due to her complex presentation and incontinence. She was admitted to the neuropsychiatric unit for definitive treatment of those issues. Patient was a poor historian but family was with her in the emergency department. We were able to get a history consistent with what was described by the emergency room doctor above. The behaviors seem to have started or at least were exacerbated by her essential discontinuation of medication which was followed by increasing disruption in her behavior patterns. After getting her and evaluating her for admission it became clear she was not suitable for the unit. However we had discussed the risks, benefits and alternatives of initiating the Abilify Maintena injection and they understood and agreed to proceed as is documented in this note. After receiving the injection we discussed with family approaches to manage things over the next several days and that they could return if there were issues and that we would talk to the outpatient provider Dr. Schmidt about getting her in a position that she could get the shot regularly. We also discussed the Abilify Asimtufii and the possibility of getting her on shots every 2 months. We reviewed her mental health history and there were no additional issues of note. Hospital Course Hospital Course Patient presented to the emergency department with aggression and not taking her medication leading to a decision that we could admit her and assist the family by switching her over to the long-acting injectable. She was admitted but when this process description writer went to evaluate her and became clear that she would not be functional on the unit. We reviewed the coadministration of oral Abilify which was not happening anyway with the caregiver and advised her to continue to try to get the Abilify oral and but that what would likely happen if there was no oral administration is that steady-state that we are seeking would be reached likely a week later. Abilify Maintena 400 mg IM was administered without incident. We discussed working with her outpatient team on making sure that she gets the prior authorization for Abilify at [facility] or the Abilify Asimtufii. Recommendation for follow-up with the provider was arranged. She was discharged with no change but with hope that as the medication started to increase in her body that we would see changes in her behavior and hopefully return to previous baseline. Her home medications were maintained. During the hospitalization, patient had routine laboratory studies which were within normal limits except for few outliers. Additionally there was a general medical evaluation which was also within normal limits and revealed no new acute processes. Discharge Summary: At the time of discharge, patient did not appear psychotic. Mood and anxiety were well managed. Patient and family were given recommendations for aftercare and follow-up. Patient was evaluated and deemed to be absent credible lethality particularly from the standpoint that mom felt comfortable she could manage her with the medication injection given and the dose writing so that help would be on the way. , and had achieved the maximum benefit from an inpatient hospitalization, so was discharged. Mental Status Exam MSE Comments: This is an overweight versus obese white female with limited grooming and eye contact. No abnormal movements except for mild psychomotor retardation currently no reports of psychomotor agitation. Minimally cooperative with exam and mild to moderate distress. Speech was limited and aphasia mostly mute. Mood not described affect subdued. Thought process linear versus disorganized. Thought content: No reports of suicidal or homicidal ideation but recent issues of self directed aggression and aggression towards others, there were no delusions reported or noted, there were no signs that she was attending to internal stimuli. Attention and concentration were limited versus impaired and memory was unreliable but none were formally tested. She was alert and oriented to self. Insight, judgment and impulse control are impaired. Discharge Data Studies Completed and Pending: Laboratory Results WBC 3.92 10^3/uL (3.2 9-11.43) 10/14/24 10:22 RBC 4.11 10^6/uL (3.8 5-5.65) 10/14/24 10:22 Hgb 10.80 g/dL (11.27 -16.99) L 10/14/24 10:22 Hct 35.6 % (36-47) L 10/14/24 10:22 MCV 86.6 fl (85-98) 10/14/24 10:22 MCH 26.3 pg (27-33) L 10/14/24 10:22 MCHC 30.3 g/dL (30-55) 10/14/24 10:22 RDW 12.8 % (12.1-15.1 ) 10/14/24 10:22 Plt Count 222 10^3/cmm (157 -399) 10/14/24 10:22 MPV 9.6 fL (7.4-10.4) 10/14/24 10:22 Neut % (Auto) 54.5 % 10/14/24 10:22 Lymph % (Auto) 33.2 % 10/14/24 10:22 [place] % (Auto) 10.5 % 10/14/24 10:22 Eos % (Auto) 1.0 % 10/14/24 10:22 Baso % (Auto) 0.5 % 10/14/24 10:22 Neut # (Auto) 2.14 10^3/uL (1.8 -7.7) 10/14/24 10:22 Lymph # (Auto) 1.3 10^3/uL (0.8- 4.8) 10/14/24 10:22 [place] # (Auto) 0.4 10^3/uL (0.2- 0.9) 10/14/24 10:22 Eos # (Auto) 0.0 10^3/uL (0.0- 0.8) 10/14/24 10:22 Baso # (Auto) 0.0 10^3/uL (0.0- 0.1) 10/14/24 10:22 Nucleated RBC % (a uto) 0 % 10/14/24 10:22 Nucleated RBCs # 0.0 /100WBC 10/14/24 10:22 Sodium 139 mmol/L (136-1 45) 10/14/24 10:22 Potassium 4.0 mmol/L (3.5-5 .1) 10/14/24 10:22 Chloride 105 mmol/L (98-10 7) 10/14/24 10:22 Carbon Dioxide 22 mmol/L (22-29) 10/14/24 10:22 Anion Gap 16.0 (5-19) 10/14/24 10:22 BUN 13 mg/dL (6-20) 10/14/24 10:22 Creatinine 0.6 mg/dL (0.5-0. 9) 10/14/24 10:22 GFR Calculation 123.9 mL/min (90- 130) 10/14/24 10:22 Glucose 80 mg/dL (65-115) 10/14/24 10:22 Calculated Osmolal ity 287 mOsm/kg (285- 295) 10/14/24 10:22 Calcium 9.0 mg/dL (8.5-10 .5) 10/14/24 10:22 Total Bilirubin 0.5 mg/dL (0.15-1 .2) 10/14/24 10:22 AST 16 U/L (0-32) 10/14/24 10:22 ALT 9 U/L (0-33) 10/14/24 10:22 Alkaline Phosphata se 41 U/L (35-105) 10/14/24 10:22 Total Protein 7.0 g/dL (6.6-8.7 ) 10/14/24 10:22 Albumin 4.2 g/dL (3.5-5.2 ) 10/14/24 10:22 Globulin 2.8 g/dL (1.3-4.6 ) 10/14/24 10:22 Salicylates < 0.3 mg/dL (3-10 ) L 10/14/24 10:22 Acetaminophen < 5.0 ug/mL (10-3 0) L 10/14/24 10:22 Vitals: Last Vital Signs Pulse 99 10/14/24 09:41 Resp 15 10/14/24 09:41 BP 107/76 10/14/24 09:41 Pulse Ox 99 10/14/24 09:41 O2 Del Method Room Air 10/14/24 09:41 Discharge Plan Discharge Patient Disposition: Home Condition: Stable Prescriptions: New Abilify Maintena 400 mg suspension,extended rel recon 400 mg IM Q28D 28 Days Qty: 1 1RF Rx Instructions: next injection 11/11/24 Continued trazodone 100 mg tablet See Rx Instructions .ROUTE .COMPLEX Qty: 90 3RF Dose Instruction: TAKE 1 TABLET(100 MG) BY MOUTH DAILY AT BEDTIME Rx Instructions: TAKE 1 TABLET(100 MG) BY MOUTH DAILY AT BEDTIME as needed for sleep citalopram 40 mg tablet 40 mg PO DAILY Qty: 30 11RF Rx Instructions: take at night aripiprazole 10 mg tablet 10 mg PO DAILY Qty: 90 3RF divalproex [Depakote Sprinkles] 125 mg capsule, delayed rel sprinkle 500 mg PO BID 90 Days Qty: 720 3RF topiramate 100 mg tablet 100 mg PO DAILY Discharge Orders: Discharge Order (Routine); Ordered 10/14/24 Ordered By: Ethan Holman Referrals: Jennifer Schmidt MD [Primary Care Provider, Neurology] Discharge Diet: Regular Discharge Activity: Resume usual activity Patient Instructions: Opioid Safety Discharge Attestations NPU Time Spent in Discharge Care*: less than 30 min Specific Discharge Activities: Specific discharge activities: educating and/or supporting family/caregiver, discussing with oil field caser/social workers/dc planners, documenting/other paperwork and evaluating patient/reviewing data Coding Level of Care Code Acute Code for Chg Fwd Diagnoses Bipolar 1 disorder with moderate manfred F31.12 Autism F84.0 Seizures R56.9
--- NOTE | 2024-10-14 15:09 | PC.NURSE ---
PATIENT WILL NOT TOLERATE VITALS CORDS ON HER.
== END 2024-10-14 15:47 | disposition home or self-care (01) ==
LOC: ER 13:41 → ER IP 13:51
PROVIDERS: Admitting Provider Psychiatry & Neurology Psychiatry; Emergency Provider General Practice; PCP Specialist; Visit Provider Psychiatry & Neurology Psychiatry
DX: F31.12 Bipolar disorder, current episode manic without psychotic features, moderate (principal); F84.0 Autistic disorder; R56.9 Unspecified convulsions
CPT/HCPCS: 80053; 80307; 85025; 93005; 96372; 99285; G0378; J1630; J2060

== ENCOUNTER → 2025-04-01 12:56 | Outpatient (BNVA) | payer MEDICAID, SELFPAY | PROVIDERS: PCP Specialist; Visit Provider Specialist | DX: F84.0 Autistic disorder (principal); F34.1 Dysthymic disorder; F31.12 Bipolar disorder, current episode manic without psychotic features, moderate; G40.909 Epilepsy, unspecified, not intractable, without status epilepticus; F69 Unspecified disorder of adult personality and behavior | CPT/HCPCS: 99214 ==